=== PATIENT | male | born 1945 | race Caucasian/White ===

== ENCOUNTER 2020-08-19 07:20 | Outpatient (CLI) | payer MEDICARE, SELFPAY ==
--- NOTE | 2020-07-23 09:24 | PC.NURSE ---
pt arrived and when going over medicine it was discovered he took his metoprolol last night at 1999. pt stated he didnt receive any preparation intructions. dr finney was called to verify. dr finney stated the patient could either reschedule or he could do just a regular lexiscan. pt chose to reschedule and was given new instructions on how to prepare for the exercise stress test.
--- NOTE | 2020-08-19 07:31 | ECG_ITS ---
[facility] Test Date: 2020-08-19 Pat Name: Phan Hubbard Department: Room: Gender: Male [employer]: : 1945 Requested By: Devin Dias Order Number: [id number] J Carlos MD: Devin Dias M.D. Interpretive Statements NAME OF STUDY: EXERCISE SESTAMIBI STRESS TEST INDICATION: Chest Pain, not able to obtain bp during tredmill portion due to faulty equipment. EXERCISE DATA: The patient was exercised by Dong protocol. Baseline heart rate was 54 beats per minute. Baseline blood pressure was 135/79 millimeters of mercury. Target heart rate was 146 beats per minute. Maximum heart rate achieved was 127, which was 86 % of the target heart rate. Maximum blood pressure was 187/96 millimeters of mercury. Total exercise time was 6 minutes. Maximum METs achieved was 6.8, maximum VO2 was 23.8. The reason for ending the test was maximum effort achieved. The patient complained of during the stress test, which then resolved at the end of the test. ELECTROCARDIOGRAM: BASELINE: Sinus bradycardia, normal axis, no significant ST-T changes at the baseline noted. EXERCISE: At the peak exercise level, no significant ST-T changes suggestive of ischemia noted. RECOVERY: During the recovery period, heart rate dropped appropriately. No significant ST-T changes in the recovery suggestive of ischemia noted. CONCLUSION: 1. Exercise capacity fair. 2. Heart rate response was appropriate. 3. Blood pressure response was [hypertensive 4. Symptoms not suggestive of ischemia. 5. Electrocardiogram portion of the stress test was not suggestive of ischemia. 6. Nuclear scan will be documented separately. Electronically Signed On 08-20-2020 20:43:30 CDT by Devin Dias M.D. [id number]
--- NOTE | 2020-08-19 07:32 | NMCV_ITS ---
NM yonas perf SPECT r/s* [id number] Phan Hubbard Age: 75 Gender: M : 1945 Exam Date: 08/19/2020 07:32 Ordering Phys: Devin Dias MD ([email or web address]) Technologist: SARAH Alvarado Exam Location: [facility] Indications: Chest pain STRESS TEST Please see separate stress test report in [facility] for full findings IMAGE PROTOCOL Rest/Stress 1 Exercise Day Radiopharmaceutical Dose (mCi) Administration Site Administered by Rest: Tc-99m 10.7 IV SARAH Alvarado Sestamibi Stress:Tc-99m 32.8 IV SARAH Murphy Sestamibi Rest: 19-Aug-2020 60 Discovery 630 Stress: 19-Aug-2020 45 Discovery 630 Radiopharmaceutical was injected at 85 % maximum heart rate. Supine position only as patient was unable to lay prone. SPECT RESULTS Technical Quality: Good Raw Data Analysis: Normal Image Corrections: No attenuation or motion correction applied Summed Stress Score: 7 Summed Rest Score: 8 Summed Difference Score: 0 PERFUSION FINDINGS Medium-sized area of fixed perfusion tach noted in basal distal inferior and inferoseptal wall suggestive of old myocardial infarction versus artifact. Please note that patient was not able to perform the prone images therefore cannot adjust for artifact. FUNCTIONAL RESULTS (calculated via Gated SPECT) Stress Image LV EF (%): 60 Stress EDV (mL):67 TID: 0.9 Stress ESV (mL):27 FUNCTIONAL FINDINGS: There is normal left ventricular systolic function. IMPRESSIONS This study is negative for ischemia, in the absence of wall motion abnormality most likely fixed perfusion defect in the inferior wall is an artifact. Patient was not able to perform the prone images therefore cannot adjust for artifact. Overall this stress test is negative for ischemia. EKG segment will be documented separately. Left ventricle ejection fraction appeared to be normal. Devin Dias MD (Electronically Signed) Final Date: 19 August 2020 17:43 S
[2020-08-19 07:51] VITALS: BMI 29.0
[2020-08-19 09:34] VITALS: BP 151/88; PULSE 80
== END 2020-08-19 07:21 | disposition home or self-care (01) ==
PROVIDERS: PCP Nurse Practitioner Family; Visit Provider Internal Medicine Cardiovascular Disease
DX: R07.2 Precordial pain (principal); R06.02 Shortness of breath
CPT/HCPCS: 78452; 93017; A9500

== ENCOUNTER → 2021-02-15 09:43 | Outpatient (BNVA) | payer MEDICARE, SELFPAY | PROVIDERS: PCP Nurse Practitioner Family; Visit Provider Specialist | DX: G40.209 Localization-related (focal) (partial) symptomatic epilepsy and epileptic syndromes with complex partial seizures, not intractable, without status epilepticus (principal); G40.909 Epilepsy, unspecified, not intractable, without status epilepticus; Z95.2 Presence of prosthetic heart valve; F17.210 Nicotine dependence, cigarettes, uncomplicated | CPT/HCPCS: 36415; 80053; 80164; 85025; 99214 ==

== ENCOUNTER 2021-02-15 10:48 | Outpatient (CLI) | payer MEDICARE, SELFPAY ==
[2021-02-15 11:45] LABS: Basophils # 0.1 10^3/uL (0.0-0.1); Basophils % 0.5 %; Eosinophils # 0.5 10^3/uL (0.0-0.8); Eosinophils % 3.9 %; Hematocrit 47.4 % (42.0-52.0); Hemoglobin 15.6 g/dL (11.7-16.6); Lymphocytes # 4.3 10^3/uL (0.8-4.8); Lymphocytes % 37.1 %; Mean Corpuscular HGB Conc 32.9 g/dL (30.0-36.0); Mean Corpuscular Hemoglobin 31.9 pg (28.0-34.0); Mean Corpuscular Volume 96.9 fL (80-94); Mean Platelet Volume 11.7 fL (7.4-10.4); Monocytes # 1.3 10^3/uL (0.2-0.9); Monocytes % 11.3 %; Neutrophils # 5.44 10^3/uL (1.8-7.7); Neutrophils % 46.9 %; Nucleated Red Blood Cells % 0 %; Platelet Count 147 10^3/cmm (130-400); Red Blood Count 4.89 10^6/uL (4.1-5.3); Red Cell Distribution Width 13.1 % (12.1-15.1); White Blood Count 11.6 10^3/uL (4.0-10.0)
[2021-02-15 12:16] LABS: Alanine Aminotransferase 19 U/L (0-41); Albumin Level 4.1 g/dL (3.5-5.2); Alkaline Phosphatase 53 IU/L (40-130); Anion Gap 12.5 (5-19); Aspartate Amino Transferase 23 U/L (0-40); Blood Urea Nitrogen 18 mg/dL (8-23); Calcium 9.3 mg/dL (8.5-10.5); Carbon Dioxide 28 mmol/L (22-29); Chloride 102 mmol/L (98-107); Globulin 2.8 g/dL (1.3-4.6); Glucose 92 mg/dL (65-115); Osmolality Calculated 288 mOsm/kg (285-295); Potassium 4.5 mmol/L (3.5-5.1); Sodium 138 mmol/L (136-145); Total Bilirubin 0.4 mg/dL (0.15-1.2); Total Protein 6.9 g/dL (6.6-8.7)
[2021-02-15 12:18] LABS: Valproic Acid Level 80.4 ug/mL (50-100)
== END 2021-02-15 10:49 | disposition home or self-care (01) ==
LOC: LAB 10:52
PROVIDERS: PCP Nurse Practitioner Family; Visit Provider Specialist
DX: G40.909 Epilepsy, unspecified, not intractable, without status epilepticus (principal)
CPT/HCPCS: 36415; 80053; 80164; 85025

== ENCOUNTER → 2021-09-30 08:25 | Outpatient (BNVA) | payer MEDICARE, SELFPAY | PROVIDERS: PCP Family Medicine Adult Medicine; Visit Provider Family Medicine Adult Medicine | DX: I10 Essential (primary) hypertension (principal); E78.5 Hyperlipidemia, unspecified; Z13.6 Encounter for screening for cardiovascular disorders; Z12.5 Encounter for screening for malignant neoplasm of prostate | CPT/HCPCS: 80053; 80061; 83036; 84153; 84443; 85025 ==

== ENCOUNTER → 2022-09-25 10:54 | Outpatient (BNVA) | payer MEDICARE, SELFPAY | PROVIDERS: PCP Family Medicine Adult Medicine; Referring Provider Family Medicine Adult Medicine; Visit Provider Podiatrist Foot & Ankle Surgery | DX: I73.9 Peripheral vascular disease, unspecified (principal); B35.1 Tinea unguium | CPT/HCPCS: 11721; 99204 ==

== ENCOUNTER → 2023-03-13 12:03 | Outpatient (BNVA) | payer MEDICARE, SELFPAY | PROVIDERS: PCP Family Medicine Adult Medicine; Visit Provider Family Medicine Adult Medicine | DX: C44.212 Basal cell carcinoma of skin of right ear and external auricular canal (principal) | CPT/HCPCS: 88304 ==

== ENCOUNTER → 2023-04-02 09:46 | Outpatient (BNVA) | payer MEDICARE, SELFPAY | PROVIDERS: PCP Family Medicine Adult Medicine; Visit Provider Dermatology | DX: C44.212 Basal cell carcinoma of skin of right ear and external auricular canal (principal); L57.0 Actinic keratosis | CPT/HCPCS: 13152; 17000; 17311; 17312 ==

== ENCOUNTER → 2023-04-12 13:27 | Outpatient (BNVA) | payer MEDICARE, SELFPAY | PROVIDERS: PCP Family Medicine Adult Medicine; Visit Provider Dermatology | DX: L82.1 Other seborrheic keratosis (principal); L57.8 Other skin changes due to chronic exposure to nonionizing radiation; Z48.02 Encounter for removal of sutures | CPT/HCPCS: 99213 ==

== ENCOUNTER 2024-01-02 13:06 | Outpatient (CLI) | payer MEDICARE, SELFPAY ==
--- NOTE | 2024-01-02 13:30 | USCV_ITS ---
Phan Hubbard Age: 78 Gender: M : 1945 Exam Date: 01/02/2024 13:23 Ordering Phys: Nadeem Villa MD Technologist: Jerri Calderon Exam Location: [facility] [place] Indication: Dizziness Risk Factors: none known Previous Vascular Surgery: CABG Right Brachial BP: / Left Brachial BP: / Right Left Velocity (cm/s) Spectral Plaque Velocity (cm/s) Spectral Plaque Syst/Diast Broadening Syst/Diast Broadening 55.00/ 12.10 Prox CCA 115.20/ 22.70 120.80/30.70 Mid CCA 58.60 / 15.00 55.00/ Hetro Distal CCA 71.70 / Hetro 56.80/ 19.30 Hetro Prox ICA 106.50/ 10.70 Hetro 76.20/ Mid ICA 76.00 / 21.60 76.20/ 2.30 Distal ICA 76.00 / 21.60 89.60 ECA 67.30 1.40 ICA/CCA 0.90 Antegrade Vertebral Antegrade 60.40/ 10.80 cm/s 47.20/ 17.50 cm/s Tri Subclavian Tri 152.0 108.1 0 0 FINDINGS Comparison:. 06/29/18 No significant elevation of systolic or diastolic velocities. Waveforms are normal. Mild plaque in the bifurcations, similar to prior exam. Antegrade vertebral arteries. CONCLUSIONS Bilateral ICA stenosis less than 50%. Mild carotid atherosclerosis. Dr. Precious Herrera DO (Electronically Signed) Final Date: 03 January 2024 07:52 S
== END 2024-01-02 13:07 | disposition home or self-care (01) ==
LOC: RAD 13:06
PROVIDERS: PCP Family Medicine Adult Medicine; Visit Provider Family Medicine Adult Medicine
DX: I65.23 Occlusion and stenosis of bilateral carotid arteries (principal); R42 Dizziness and giddiness
CPT/HCPCS: 93880

== ENCOUNTER → 2024-03-18 14:14 | Outpatient (BNVA) | payer MEDICARE, SELFPAY | PROVIDERS: PCP Family Medicine Adult Medicine; Referring Provider Family Medicine Adult Medicine; Visit Provider Internal Medicine | DX: Z95.2 Presence of prosthetic heart valve (principal); I10 Essential (primary) hypertension; I73.9 Peripheral vascular disease, unspecified; F17.210 Nicotine dependence, cigarettes, uncomplicated | CPT/HCPCS: 99214 ==

== ENCOUNTER 2024-03-27 14:02 | Outpatient (CLI) | payer MEDICARE, SELFPAY ==
--- NOTE | 2024-03-27 15:00 | USCV_ITS ---
Phan Hubbard Age: 79 Gender: M : 1945 Exam Date: 03/27/2024 15:07 Ordering Phys: David Arambula M.D ([email or web address]) Technologist: Exam Location: [facility] [place] Indication: ao pros BP: 120 / 70 HR: 66 Rhythm: Sinus Technical Quality: Adequate MEASUREMENTS (Male / Female) Normal Values 2D ECHO LV Diastolic Diameter PLAX 4.7 cm 4.2 - 5.9 / 3.9 - 5.3 cm IVS Diastolic Thickness 0.9 cm 0.6 - 1.0 / 0.6 - 0.9 cm IVS Systolic Thickness 1.5 cm LVPW Diastolic Thickness 1.1 cm 0.6 - 1.0 / 0.6 - 0.9 cm LVPW Systolic Thickness 1.4 cm LVOT Diameter 2.4 cm LV Ejection Fraction 2D Teich 61.3 % LV Ejection Fraction MOD 2C 65.4 % LV Ejection Fraction 2C AL 65.1 % LA Diameter 3.2 cm RA Systolic Volume 4C AL 31.6 ml RA Systolic Volume 4C MOD 27.9 ml LA Sys Volume AL 48.4 cm cubed LA Sys Volume Index AL 25.7 cm cubed/m squared Aorta at Sinotubular Diameter 3.1 cm IVC Diameter 1.3 cm DOPPLER AV Peak Velocity 343.0 cm/s LVOT Peak Velocity 94.0 cm/s AV Area Cont Eq vti 1.4 cm squared AV Area Cont Eq pk 1.2 cm squared MV Peak Velocity 133.0 cm/s MV Area PHT 3.2 cm squared Mitral E to A Ratio 1.3 TV Peak Velocity 168.5 cm/s TR Peak Velocity 233.0 cm/s TR Peak Gradient 21.7 mmHg TV Peak E Velocity 117.0 cm/s Right Atrial Pressure 3.0 mmHg Pulmonary Artery Systolic Pressu 24.7 mmHg PV Peak Velocity 107.0 cm/s FINDINGS Left Ventricle Left ventricle is normal in size. LV systolic function is normal with EF of 60 to 65%. No regional wall motion abnormalities are seen. Right Ventricle Normal in size and fucntion Right Atrium Normal in size Left Atrium Normal in size Mitral Valve Mild to moderate mitral valve calcification. Mild mitral regurgitation. Aortic Valve Bioprosthetic aortic valve. DVI is normal and is 0.32. Mean gradient across aortic valve of 20 mmHg. Tricuspid Valve Insufficient TR jet to evaluate RVSP. Pulmonic Valve Not well visualized Pericardium Normal Aorta Normal in size IVC Appears to be normal CONCLUSIONS LV systolic function is normal with EF of 60-65% Mild mitral regurgitation Bioprosthetic aortic valve is seen. DVI is normal. Mean gradient of 20 mmHg. Compared to prior echocardiogram from 2019, gradient across the aortic valve has increased slightly. David Arambula MD (Electronically Signed) Final Date: 10 Apr 2024 10:22 S
== END 2024-03-27 14:03 | disposition home or self-care (01) ==
LOC: RAD 14:02
PROVIDERS: PCP Family Medicine Adult Medicine; Visit Provider Internal Medicine
DX: Z95.2 Presence of prosthetic heart valve (principal); I34.0 Nonrheumatic mitral (valve) insufficiency
CPT/HCPCS: 70450; 93306

== ENCOUNTER 2024-03-27 15:30 | Outpatient (CLI) | payer MEDICARE, SELFPAY ==
--- NOTE | 2024-03-27 15:30 | CT_ITS ---
WS: [id number] CT HEAD NONCONTRAST HISTORY: Fall with left forehead injury TECHNIQUE: Contiguous axial imaging performed through the brain in 2.5 mm imaging. Bone and soft tiss ue windows. Sagittal and coronal reformats reviewed. All CT scans at [facility] use at least one of these dose optimization techniques: automated exposure control; mA and/or kV adjustment per pa tient size (includes targeted exams where dose is matched to clinical indication); or iterative recon struction. DLP: 1093.08 mGy.cm COMPARISON: 12/17/2014 No acute intracranial hemorrhage, midline shift or mass effect. Mild bilateral frontal lobe atrophy. No large territory infarct. Mild small vessel ischemic disease. Ventricles: Normal size with no hydrocephalus. Paranasal sinuses: As visualized are clear. Mastoid air cells: Well pneumatized. Calvarium and scalp: No skull fracture. Mild soft tissue contusion over the LEFT supraorbital region. CT/CT head wo con* [id number] IMPRESSION: 1. No acute intracranial hemorrhage or edema. 2. Mild atrophy and small vessel ischemic disease. 3. Mild LEFT supraorbital soft tissue contusion.
== END 2024-03-27 15:31 | disposition home or self-care (01) ==
LOC: RAD 04-24 12:18
PROVIDERS: PCP Family Medicine Adult Medicine; Visit Provider Family Medicine Adult Medicine
DX: G11.9 Hereditary ataxia, unspecified (principal); R42 Dizziness and giddiness; W19.XXXA Unspecified fall, initial encounter
CPT/HCPCS: 70450

== ENCOUNTER → 2024-12-16 12:20 | Outpatient (BNVA) | payer MEDICARE, SELFPAY | PROVIDERS: PCP Family Medicine Adult Medicine; Visit Provider Internal Medicine | DX: I73.9 Peripheral vascular disease, unspecified (principal); Z95.2 Presence of prosthetic heart valve; R42 Dizziness and giddiness; I10 Essential (primary) hypertension; F17.210 Nicotine dependence, cigarettes, uncomplicated | CPT/HCPCS: 99214 ==

== ENCOUNTER → 2024-12-16 13:13 | Outpatient (BNVA) | payer MEDICARE, SELFPAY | PROVIDERS: PCP Family Medicine Adult Medicine; Visit Provider Internal Medicine | DX: R42 Dizziness and giddiness (principal); R00.2 Palpitations; I49.1 Atrial premature depolarization; I49.3 Ventricular premature depolarization; I47.10 Supraventricular tachycardia, unspecified | CPT/HCPCS: 93242 ==

== ENCOUNTER → 2025-01-26 09:55 | Outpatient (BNVA) | payer MEDICARE, SELFPAY | PROVIDERS: PCP Family Medicine; Visit Provider Family Medicine | DX: R73.03 Prediabetes (principal); E03.9 Hypothyroidism, unspecified; E78.2 Mixed hyperlipidemia; G40.909 Epilepsy, unspecified, not intractable, without status epilepticus; R06.2 Wheezing; F52.21 Male erectile disorder; H61.20 Impacted cerumen, unspecified ear; I10 Essential (primary) hypertension; Z95.2 Presence of prosthetic heart valve; R42 Dizziness and giddiness; F17.200 Nicotine dependence, unspecified, uncomplicated; Z71.6 Tobacco abuse counseling | CPT/HCPCS: 80053; 80061; 83036; 84439; 84443; 85025 ==

== ENCOUNTER → 2025-08-10 10:00 | Outpatient (BNVA) | payer MEDICARE, SELFPAY | PROVIDERS: PCP Family Medicine; Visit Provider Family Medicine | DX: Z13.6 Encounter for screening for cardiovascular disorders (principal) | CPT/HCPCS: 80053; 80061; 84439; 84443; 85025 ==